=== PATIENT | male | born 1965 | race African-American/Black ===

== ENCOUNTER → 2017-02-04 13:19 | Outpatient (CLI) | payer OTHER | END | disposition home or self-care (01) | LOC: D.RAD 01-24 10:00 | DX: Z02.71 Encounter for disability determination (principal) ==

== ENCOUNTER 2017-11-22 10:31 | Emergency (ER) | payer MEDICAID ==
[2017-11-22 11:29] LABS: APPEARANCE CLEAR (CLEAR); BACTERIA FEW /hpf (NONE SEEN); BILIRUBIN NEGATIVE (NEGATIVE); COLOR YELLOW (YELLOW); EPITHELIAL CELLS 0-5 /hpf (0-5); GLUCOSE NEGATIVE (NEGATIVE); KETONE NEGATIVE (NEGATIVE); MUCUS <1+ /lpf (NONE SEEN); NITRITE NEGATIVE (NEGATIVE); PROTEIN NEGATIVE (NEGATIVE); SPECIFIC GRAVITY 1.015 (1.005-1.020); WHITE CELLS - URINE RARE /hpf (0-5)
== END 2017-11-22 12:48 | disposition home or self-care (01) ==
LOC: D.ER 10:31
PROVIDERS: Family Medicine
DX: M54.16 Radiculopathy, lumbar region (principal); R31.29 Other microscopic hematuria; F17.200 Nicotine dependence, unspecified, uncomplicated